=== PATIENT | female | born 1985 | race Caucasian/White ===

== ENCOUNTER 2016-08-17 23:45 | Emergency (ER) | payer MEDICAID ==
[2016-08-18] MEDS ORDERED: KETOROLAC 30 MG/1 ML SDV IVP ONE (00:14)
[2016-08-18] MEDS ORDERED: HALOPERIDOL LACT 5 MG/ML INJ IVP ONE (00:14)
[2016-08-18] MEDS ORDERED: DEXAMETHASONE 10 MG/ML VIAL IVP ONE (00:14)
--- NOTE | 2016-08-18 00:17 | EDPHY ---
H & P Stated Complaint: migraine WADDELL Time Seen by Provider: 08/18/16 00:07 HPI/ROS: Chief complaint: Headache HPI: 30-year-old female with a history migraine headaches presenting with worsening migraine which began at 7 o'clock this evening. Patient took her normal daily medications and abortive medications without relief. Pain is about a 9 on 10. Feels like her typical migraines behind her right eye. Some nausea and vomiting. Has had photophobia. Does occasionally get a visual aura but did not get 1 associated with this headache. No fevers or chills. No neck pain or stiffness. She is not aware of any triggers. She is trying to normalized medications with her neurologist. ROS: 10 point Review of Systems is negative except as noted in the HPI. Past medical history: Migraine headaches Allergies: Metoclopramide and amoxicillin Physical exam: Gen: Awake, Alert, uncomfortable appearing HEENT: Ears: Bilateral TMs are normal, no erythema or bulging. External auditory canals are clear. Nose: no rhinorrhea Eyes: PERRLA, EOMI Mouth: Moist mucosa Neck: Supple, no JVD Chest: nontender, lungs clear to auscultation Heart: S1, S2 normal, no murmur Abd: Soft, non-tender, no guarding Back: no CVA tenderness, no midline tenderness Ext: no edema, non-tender Skin: no rash Neuro: CN II-XII intact, Sensation grossly intact, Strength 5/5 in bilateral upper and lower extremities - Personal History LMP (Females 10-55): IUD In Place Current Tetanus/Diphtheria Vaccine: Yes Current Tetanus Diphtheria and Acellular Pertussis (TDAP): Yes Tetanus Vaccine Date: 2013 - Medical/Surgical History Hx Asthma: No Hx Chronic Respiratory Disease: No Hx Diabetes: No Hx Cardiac Disease: No Hx Renal Disease: No Hx Cirrhosis: No Hx Alcoholism: No Hx HIV/AIDS: No Hx Splenectomy or Spleen Trauma: No Other PMH: tonsilectomy, migraines - Social History Smoking Status: Never smoked Constitutional: Initial Vital Signs Heart Rate 96 08/17/16 23:51 Respiratory Rate 20 08/17/16 23:51 Blood Pressure 123/91 H 08/17/16 23:51 O2 Sat (%) 99 08/17/16 23:51 O2 Delivery Mode Room Air Allergies/Adverse Reactions: metoclopramide HCl [From Reglan] Allergy (Unknown, Verified 08/10/15 04:01) amoxicillin Allergy (Verified 08/10/15 04:01) ketamine Allergy (Verified 08/18/16 00:38) Home Medications: Medication Instructions Recorded Ibuprofen [Motrin (*)] 800 mg PO Q6 #15 tab 11/02/14 Topamax 11/02/14 Naratriptan 08/17/16 SUMAtriptan 08/17/16 Medical Decision Making ED Course/Re-evaluation: Re-evaluation patient is feeling significantly better. Headache is about a 3/ 10. She is tolerating p.o.. She is asking to go home. - Data Points Medications Given: Discontinued Medications Dexamethasone (Decadron Injection) 10 mg IVP EDNOW ONE Stop: 08/18/16 00:15 Last Admin: 08/18/16 00:25 Dose: 10 mg Diphenhydramine HCl (Benadryl Injection) 50 mg IVP EDNOW ONE Stop: 08/18/16 00:15 Last Admin: 08/18/16 00:25 Dose: 50 mg Haloperidol Lactate (Haldol Injection) 2.5 mg IVP EDNOW ONE Stop: 08/18/16 00:15 Last Admin: 08/18/16 00:25 Dose: 2.5 mg Sodium Chloride (Ns) 1,000 mls @ 0 mls/hr IV ONCE ONE PRN Reason: Wide Open Stop: 08/18/16 00:26 Last Admin: 08/18/16 00:33 Dose: 1,000 mls Ketorolac Tromethamine (Toradol) 30 mg IVP EDNOW ONE Stop: 08/18/16 00:15 Last Admin: 08/18/16 00:25 Dose: 30 mg Departure - Departure Disposition: Home, Routine, Self-Care Clinical Impression: Migraine headache Condition: Good Instructions: Migraine Headache (ED) Additional Instructions: Follow up with your neurologist in 1-2 days for re-evaluation. Return emergency department for fevers, chills, nausea, vomiting, worsening headache, confusion, or any other concerns. Referrals: Lyndsay Lofton MD [Medical Doctor] - As per Instructions
[2016-08-18] MEDS ORDERED: NS 1,000 ML IV ONE (00:25)
[2016-08-18 01:03] VITALS: BP 102/66; PULSE 90; RESP 16; TEMP 97.9; O2SAT 96
== END 2016-08-18 01:02 | disposition home or self-care (01) ==
DX: G43.909 Migraine, unspecified, not intractable, without status migrainosus (principal)
CPT/HCPCS: 96374; J1200; J1885

== ENCOUNTER 2016-09-08 20:38 | Emergency (ER) | payer MEDICAID ==
[2016-09-08 21:04] VITALS: TEMP 99; O2SAT 97
[2016-09-08] MEDS ORDERED: LORazepam 1 MG TAB PO ONE ×2 (21:36)
[2016-09-08] MEDS ORDERED: LORazepam 2 MG/ML INJ IVP ONE (21:36)
[2016-09-08] MEDS ORDERED: ONDANSETRON 4 MG/2 ML VIAL IVP ONE (22:18)
[2016-09-08] MEDS ORDERED: NS 1,000 ML IV ONE (22:19)
[2016-09-08] MEDS ORDERED: HALOPERIDOL LACT 5 MG/ML INJ ONE (22:29)
[2016-09-08] MEDS ORDERED: KETOROLAC 30 MG/1 ML SDV ONE (22:35)
[2016-09-08] MEDS ORDERED: DEXAMETHASONE 10 MG/ML VIAL ONE (22:35)
--- NOTE | 2016-09-08 22:38 | EDPHY ---
HPI/HX/ROS/PE/MDM Narrative: CHIEF COMPLAINT: Migraine HPI: The patient is a 30 y/o female, with a history of migraines, complaining of a migraine since 18:00pm last night, over 24 hours ago. She reports her symptoms today feel the same as previous migraines. She takes topiramate and naratriptan as daily prophylactics. Generally the standard migraine cocktail works well for her. She denies fever or other complaints. She is also requesting help finding a PCP that accepts Medicaid to help her manage her care. REVIEW OF SYSTEMS: Aside from elements discussed in the HPI, a comprehensive 10-point review of systems was reviewed and is negative. PMH: Migraines SOCIAL HISTORY: Mother at bedside PHYSICAL EXAM: General:Patient is alert, in no acute distress. ENT:Eyes are normal to inspection. ENT inspection normal. Neck: Normal inspection. Full range of motion. Respiratory:No respiratory distress. Breath sounds normal bilaterally. Cardiovascular: Regular rate and rhythm. Strong peripheral pulses. Normal cap refill. Abdomen:The abdomen is nontender to palpation. There are no peritoneal signs. There are normal bowel sounds. Back: Normal to inspection. No tenderness to palpation. Skin: Normal color. No rash. Warm and dry. Extremities: Normal appearance. Full range of motion. Neuro: Oriented x3. Normal motor function. Normal sensory function. ED Course: IV established. Labs drawn. 1mg PO Ativan administered. Second dose of 1mg PO Ativan administered. Migraine cocktail administered. I've created a case management note for the patient so they will contact her soon with PCP resources that will accept Medicaid. MDM: This patient presents with which she describes as acute exacerbation of chronic migraine. There are no features to suggest subarachnoid hemorrhage or meningitis, specifically, the patient denies acute onset of headache, change in character of headache, focal numbness, weakness, confusion or vision changes. The patient was treated with a migraine cocktail that has previously worked for her. On re-evaluation, she feels much better and would like to go home. She requested baseline blood work to be performed as she has not had this in quite some time and I see no significant abnormalities here. She understands that her thyroid function test is currently pending and she will need to call back for this result tomorrow. - Data Points Laboratory Results: Laboratory Results 09/08/16 22:15 09/08/16 22:15 09/08/16 09/08/16 09/08/16 22:15 22:15 22:15 WBC 7.19 10^3/uL 10^3/uL (3.80-9.50) RBC 4.45 10^6/uL 10^6/uL (4.18-5.33) Hgb 13.6 g/dL g/dL (12.6-16.3) Hct 39.1 % % (38.0-47.0) MCV 87.9 fL fL (81.5-99.8) MCH 30.6 pg pg (27.9-34.1) MCHC 34.8 g/dL g/dL (32.4-36.7) RDW 12.9 % % (11.5-15.2) Plt Count 267 10^3/uL 10^3/uL (150-400) MPV 9.0 fL fL (8.7-11.7) Neut % (Auto) 43.8 % % (39.3-74.2) Lymph % (Auto) 47.3 % H % (15.0-45.0) [place] % (Auto) 7.8 % % (4.5-13.0) Eos % (Auto) 0.4 % L % (0.6-7.6) Baso % (Auto) 0.6 % % (0.3-1.7) Nucleat RBC Rel Count 0.0 % % (0.0-0.2) Absolute Neuts (auto) 3.15 10^3/uL 10^3/uL (1.70-6.50) Absolute Lymphs (auto) 3.40 10^3/uL H 10^3/uL (1.00-3.00) Absolute Monos (auto) 0.56 10^3/uL 10^3/uL (0.30-0.80) Absolute Eos (auto) 0.03 10^3/uL 10^3/uL (0.03-0.40) Absolute Basos (auto) 0.04 10^3/uL 10^3/uL (0.02-0.10) Absolute Nucleated RBC 0.00 10^3/uL 10^3/uL (0-0.01) Immature Gran % 0.1 % % (0.0-1.1) Immature Gran # 0.01 10^3/uL 10^3/uL (0.00-0.10) Sodium 139 mEq/L mEq/L (134-144) Potassium 3.5 mEq/L mEq/L (3.5-5.2) Chloride 108 mEq/L mEq/L (97-110) Carbon Dioxide 17 mEq/l L mEq/l (22-31) Anion Gap 14 mEq/L mEq/L (8-16) BUN 10 mg/dL mg/dL (7-23) Creatinine 0.9 mg/dL mg/dL (0.6-1.0) Estimated GFR > 60 Glucose 89 mg/dL mg/dL (70-100) Calcium 9.3 mg/dL mg/dL (8.5-10.4) TSH Pending Beta HCG, Qual NEGATIVE Medications Given: Discontinued Medications Dexamethasone (Decadron Injection) 10 mg IVP EDNOW ONE Stop: 09/08/16 22:41 Last Admin: 09/08/16 22:42 Dose: 10 mg Diphenhydramine HCl (Benadryl Injection) 50 mg IVP EDNOW ONE Stop: 09/08/16 22:41 Last Admin: 09/08/16 22:42 Dose: 50 mg Haloperidol Lactate (Haldol Injection) 2.5 mg IVP EDNOW ONE Stop: 09/08/16 22:41 Last Admin: 09/08/16 22:42 Dose: 2.5 mg Sodium Chloride (Ns) 1,000 mls @ 0 mls/hr IV ONCE ONE PRN Reason: Wide Open Stop: 09/08/16 22:20 Last Admin: 09/08/16 22:24 Dose: 1,000 mls Ketorolac Tromethamine (Toradol) 30 mg IVP EDNOW ONE Stop: 09/08/16 22:41 Last Admin: 09/08/16 22:42 Dose: 30 mg Lorazepam (Ativan) 1 mg PO EDNOW ONE Stop: 09/08/16 21:37 Last Admin: 09/08/16 21:46 Dose: 1 mg Lorazepam (Ativan Injection) 1 mg IVP EDNOW ONE Stop: 09/08/16 21:37 Last Admin: 09/08/16 21:43 Dose: Not Given Lorazepam (Ativan) 1 mg PO EDNOW ONE Stop: 09/08/16 21:37 Last Admin: 09/08/16 21:43 Dose: Not Given Ondansetron HCl (Zofran) 4 mg IVP EDNOW ONE Stop: 09/08/16 22:19 Last Admin: 09/08/16 22:24 Dose: 4 mg General Time Seen by Provider: 09/08/16 21:20 Initial Vital Signs: Initial Vital Signs Temperature (C) 37.2 C 09/08/16 21:00 Heart Rate 88 09/08/16 21:00 Respiratory Rate 20 09/08/16 21:00 Blood Pressure 154/81 H 09/08/16 21:00 O2 Sat (%) 97 09/08/16 21:00 O2 Delivery Mode Room Air Allergies/Adverse Reactions: metoclopramide HCl [From Reglan] Allergy (Unknown, Verified 08/10/15 04:01) amoxicillin Allergy (Verified 08/10/15 04:01) ketamine Allergy (Verified 08/18/16 00:38) Home Medications: Medication Instructions Recorded Ibuprofen [Motrin (*)] 800 mg PO Q6 #15 tab 11/02/14 Topamax 11/02/14 Naratriptan 08/17/16 SUMAtriptan 08/17/16 Departure - Departure Disposition: Home, Routine, Self-Care Clinical Impression: Migraine Condition: Good Instructions: Migraine Headache (ED) Additional Instructions: Case management will contact you within the next few days to discuss options for primary care providers in the area. One resource available to you is [facility] here in [place]. Referrals: NONE *PRIMARY CARE P,. [Primary Care Provider] - As per Instructions [facility],. [Clinic] - As per Instructions Report Scribed for: Golden [place] Report Scribed by: Angelica Marx Date of Report: 09/08/16 Time of Report: 22:38 Physician Review and Approval Statement: Portions of this note were transcribed by an ED scribe. I personally performed the history, physical exam, and medical decision making; and confirm the accuracy of the information in the transcribed note.
[2016-09-08] MEDS ORDERED: HALOPERIDOL LACT 5 MG/ML INJ IVP ONE (22:40)
[2016-09-08] MEDS ORDERED: KETOROLAC 30 MG/1 ML SDV IVP ONE (22:40)
[2016-09-08] MEDS ORDERED: DEXAMETHASONE 10 MG/ML VIAL IVP ONE (22:40)
[2016-09-08 22:45] LABS: % IMMATURE GRANULYOCYTES 0.1 % (0.0-1.1); ABSOLUTE IMMATURE GRANULOCYTES 0.01 10^3/uL (0.00-0.10); ADD DIFF? NO; ADD MORPH? NO; ADD SCAN? NO; ATYPICAL LYMPHOCYTE FLAG 0 (0-99); FRAGMENT RBC FLAG 0 (0-99); HEMATOCRIT 39.1 % (38.0-47.0); HEMOGLOBIN 13.6 g/dL (12.6-16.3); LEFT SHIFT FLG 0 (0-99); LIPEMIA HEMOLYSIS FLAG 90 (0-99); MEAN CELL HEMOGLOBIN 30.6 pg (27.9-34.1); MEAN CELL HEMOGLOBIN CONCENTR. 34.8 g/dL (32.4-36.7); MEAN CELL VOLUME 87.9 fL (81.5-99.8); PLATELET CLUMPS FLAG 0 (0-99); PLATELET COUNT 267 10^3/uL (150-400); RED BLOOD CELL COUNT 4.45 10^6/uL (4.18-5.33); RED CELL DISTRIBUTION WIDTH 12.9 % (11.5-15.2)
[2016-09-08 22:52] LABS: ANION GAP 14 mEq/L (8-16); CALCIUM 9.3 mg/dL (8.5-10.4); CARBON DIOXIDE 17 mEq/l (22-31); CHLORIDE 108 mEq/L (97-110); CREATININE 0.9 mg/dL (0.6-1.0); GLOMERULAR FILTRATION RATE > 60; GLUCOSE 89 mg/dL (70-100); POTASSIUM 3.5 mEq/L (3.5-5.2); SODIUM 139 mEq/L (134-144)
[2016-09-08 23:38] VITALS: BP 104/56; PULSE 16; RESP 96
== END 2016-09-08 23:38 | disposition home or self-care (01) ==
DX: G43.909 Migraine, unspecified, not intractable, without status migrainosus (principal)
CPT/HCPCS: J1200; J1885; J2405